=== PATIENT | female | born 1975 | race Caucasian/White ===

== ENCOUNTER 2021-11-12 12:50 | Emergency (ER) | payer OTHER ==
[~2021-11-12 12:50] MED LIST: ADVAIR 250-501 EACH INH; ALBUTEROL2.5 MG/3 M INH; AMLODIPINE BESYL5 MG PO; ASPIRIN EC81 MG PO; BACLOFEN10 MG PO; BANOPHEN50 MG PO; COLACE 100MG C100 MG PO; ESTRADIOL0.5 MG PO; FISH OIL 1,0001 EAC3 PO; GABAPENTIN800 MG PO; HYDROCHLOROTHIA25 MG PO; ISOSORBIDE MONO30 MG PO; K-DUR TAB 20 M20 MEQ PO; LEVOCETIRIZINE D5 MG PO; LISINOPRIL40 MG PO; MECLIZINE HCL25 MG PO; MELOXICAM15 MG PO; MONTELUKAST SOD10 MG PO; NITROGLYCERIN0.4 MG SL; ONDANSETRON HCL4 MG PO; PROAIR HFA8.5 GM INH; PROGESTERONE200 MG PO; PROTONIX 40 MG40 M1 PO; SAVELLA100 MG PO; SENNOSIDES-DOC1 EACH PO; SUMATRIPTAN SUC50 MG PO; TOPIRAMATE50 MG PO; TRAMADOL HCL50 MG PO
[2021-11-12] MEDS ORDERED: IBUPROFEN600 MG PO (16:40)
== END 2021-11-12 16:52 | disposition home or self-care (01) ==
LOC: ER1 12:50
DX: M25.551 Pain in right hip (principal); I10 Essential (primary) hypertension; F17.210 Nicotine dependence, cigarettes, uncomplicated; Z88.5 Allergy status to narcotic agent
CPT/HCPCS: 73502; 73700; 99282; 99283